=== PATIENT | female | born 1990 | race Caucasian/White ===

== ENCOUNTER 2017-11-01 07:57 | Emergency (ER) | payer BC ==
[~2017-11-01] VITALS: Ht 162.6 cm; Wt 140.9 kg
[~2017-11-01 07:57] MED LIST: CIPR7.5D2 EACH EAR; CYCL-1 PO; DIAZ5TAB PO; HYDR-569 PO; IBUP-1985 PO; MACROBID PO; ONDA4TAB6 PO; ORPH100T2 PO; PRED20TA PO; PREN-84 PO; ZOF4T PO
[2017-11-01 08:03] VITALS: BP 148/81
[2017-11-01] MEDS ORDERED: ketorolac trometh inj. 60 MG/2 ML VIAL IM ONE (08:30)
[2017-11-01] MEDS ORDERED: IBUP-1984 PO (08:31)
== END 2017-11-01 09:00 | disposition home or self-care (01) ==
LOC: ER 07:57
DX: M75.22 Bicipital tendinitis, left shoulder (principal); G89.29 Other chronic pain; Z88.2 Allergy status to sulfonamides; Z88.1 Allergy status to other antibiotic agents; Z79.899 Other long term (current) drug therapy; Z98.890 Other specified postprocedural states
CPT/HCPCS: 96372; 99283; J1885

== ENCOUNTER 2018-02-17 22:42 | Emergency (ER) | payer OTHER, BC ==
[~2018-02-17] VITALS: Ht 162.6 cm; Wt 146.8 kg
[2018-02-17] MEDS ORDERED: ondansetron 4mg rapidly disintigrating tab PO ONE (23:25)
[2018-02-17] MEDS ORDERED: cyclobenzaprine 10mg tablet PO ONE (23:25)
[2018-02-17] MEDS ORDERED: ketorolac tromethamine 15mg/ml inj. IM ONE (23:25)
[2018-02-17] MEDS ORDERED: HYDROcodone/acetaminophen 10/325mg tab PO ONE (23:25)
[2018-02-18] MEDS ORDERED: HYDR-3965 PO
[2018-02-18] MEDS ORDERED: CYCL-1 PO
[2018-02-18] MEDS ORDERED: IBUP-1986 PO
[2018-02-18 00:14] VITALS: BP 122/81
== END 2018-02-18 00:16 | disposition home or self-care (01) ==
LOC: ER 22:42
DX: S16.1XXA Strain of muscle, fascia and tendon at neck level, initial encounter (principal); S20.219A Contusion of unspecified front wall of thorax, initial encounter; G89.29 Other chronic pain; Z98.890 Other specified postprocedural states; Z88.2 Allergy status to sulfonamides; Z88.1 Allergy status to other antibiotic agents; Z88.8 Allergy status to other drugs, medicaments and biological substances; Z79.2 Long term (current) use of antibiotics; Z79.899 Other long term (current) drug therapy; V40.5XXA Car driver injured in collision with pedestrian or animal in traffic accident, initial encounter; Y93.89 Activity, other specified; Y99.8 Other external cause status; Y92.89 Other specified places as the place of occurrence of the external cause
CPT/HCPCS: 71046; 72040; 96372; 99284; J1885; L0172

== ENCOUNTER 2019-04-20 09:42 | Emergency (ER) | payer BC ==
[~2019-04-20] VITALS: Ht 162.6 cm; Wt 133.0 kg
[~2019-04-20 09:42] MED LIST changes: +HYDR-4383 PO; -HYDR-569 PO
[2019-04-20 09:46] VITALS: BP 140/78
[2019-04-20 10:41] LABS: CLARITY,URINE CLEAR (Clear); COLOR,URINE YELLOW (Yellow); GLUCOSE, URINE NEGATIVE (Neg); KETONES,URINE NEGATIVE (Neg); LEUKOCYTE ESTERASE ,URINE TRACE (Neg); NITRITES, URINE NEGATIVE (Neg); OCCULT BLOOD,URINE SMALL (Neg); PH,URINE 5.5 (4.8-8.0); PROTEIN,URINE NEGATIVE (Neg); URINE HCG NEGATIVE (NEG)
[2019-04-20] MEDS ORDERED: ketorolac trometh inj. 60 MG/2 ML VIAL IM ONE (10:45)
[2019-04-20 10:48] LABS: UA COLLECTION TYPE CLN CATCH MIDSTREAM
[2019-04-20 10:51] LABS: BACTERIA,URINE FEW /HPF (Neg); MUCUS STRANDS FEW /LPF (Neg); RBC,URINE 0-2 /HPF (0-2); SQUAMOUS EPITHELIAL CELL,UR MANY /LPF (FEW); WBC,URINE 0-4 /HPF (0-4)
[2019-04-20 11:07] LABS: BASOPHILS % (AUTO) 0.5 % (0-1); EOSINOPHILS # (AUTO) 0.1 X10'3 (0-0.9); EOSINOPHILS % (AUTO) 0.9 % (0-6); HEMATOCRIT 42.1 % (35.0-45.0); HEMOGLOBIN 14.3 g/dl (12.0-16.0); LYMPHOCYTES # (AUTO) 2.5 X10'3 (1.1-4.8); LYMPHOCYTES % (AUTO) 27.6 % (21-51); MEAN CORPUSCULAR HEMOGLOBIN 30.2 PG (27.0-31.0); MEAN CORPUSCULAR HGB CONC 33.9 g/dL (33.0-36.5); MEAN CORPUSCULAR VOLUME 89.3 FL (78-98); MEAN PLATELET VOLUME 9.9 FL (7.4-10.4); MONOCYTES # (AUTO) 0.5 X10'3 (0-0.9); MONOCYTES % (AUTO) 5.7 % (2-12); NEUTROPHILS # (AUTO) 5.9 X10'3 (1.8-7.7); NEUTROPHILS % (AUTO) 65.3 % (42-75); PLATELET COUNT 214 X10'3 (140-440); RED BLOOD COUNT 4.72 X10'6 (4.20-5.60); RED CELL DISTRIBUTION WIDTH 13.5 % (11.5-14.5)
[2019-04-20 11:17] LABS: ALANINE AMINOTRANSFERASE 142 U/L (12-78); ALBUMIN 3.6 G/DL (3.4-5.0); ALBUMIN/GLOBULIN RATIO 0.9 (1.1-1.5); ALKALINE PHOSPHATASE 67 IU/L (46-116); ANION GAP 8 (8-16); ASPARTATE AMINO TRANSFERASE 48 U/L (10-37); BILIRUBIN,TOTAL 0.3 MG/DL (0.1-1.0); BLOOD UREA NITROGEN 10 MG/DL (7-18); BUN/CREATININE RATIO 11.5 (6.6-38.0); CALCIUM 8.8 MG/DL (8.5-10.1); CHLORIDE 107 MMOL/L (99-107); CREATININE 0.87 MG/DL (0.40-0.90); GLUCOSE 121 MG/DL (70-104); LIPASE 138 U/L (73-393); POTASSIUM 3.6 MMOL/L (3.5-5.1); SODIUM 142 MMOL/L (135-145); TOTAL CARBON DIOXIDE 27.4 MMOL/L (24-32); TOTAL PROTEIN 7.7 G/DL (6.4-8.2); eGFR 76 ML/MIN
[2019-04-20] MEDS ORDERED: LIDOcaine Viscous 15ml cup PO ONE (11:30)
[2019-04-20] MEDS ORDERED: famotidine 20mg tablet PO ONE (11:30)
[2019-04-20] MEDS ORDERED: mag hydrox/Alum hydrox/simeth 30ml oral suspension PO ONE (11:30)
[2019-04-20 11:36] LABS: URINE AMPHETAMINE SCREEN NEGATIVE (Neg); URINE BARBITUATE SCREEN NEGATIVE (Neg); URINE BENZODIAZEPINES SCREEN NEGATIVE (Neg); URINE CANNABINOID SCREEN NEGATIVE (Neg); URINE COCAINE SCREEN NEGATIVE (Neg); URINE METHADONE SCREEN NEGATIVE (Neg); URINE OPIATE SCREEN NEGATIVE (Neg); URINE PHENCYCLIDINE SCREEN NEGATIVE (Neg)
== END 2019-04-20 13:05 | disposition home or self-care (01) ==
LOC: ER 09:42
DX: R10.9 Unspecified abdominal pain (principal); R35.0 Frequency of micturition; M54.5 Low back pain; R19.7 Diarrhea, unspecified; G89.29 Other chronic pain; Z98.890 Other specified postprocedural states; Z88.2 Allergy status to sulfonamides; Z88.1 Allergy status to other antibiotic agents; Z79.2 Long term (current) use of antibiotics; Z79.899 Other long term (current) drug therapy
CPT/HCPCS: 36415; 80053; 80305; 81001; 81025; 83690; 85025; 85610; 96372; 99283; J1885

== ENCOUNTER 2019-09-11 04:46 | Emergency (ER) | payer BC ==
[~2019-09-11] VITALS: Ht 162.6 cm; Wt 145.0 kg
[2019-09-11] MEDS ORDERED: ibuprofen tablet 400 MG TABLET PO ONE (05:20)
[2019-09-11] MEDS ORDERED: pseudoephedrine 30mg tablet PO ONE (05:20)
[2019-09-11] MEDS ORDERED: benzonatate 100mg capsule PO ONE (05:20)
[2019-09-11 05:36] VITALS: BP 142/98
== END 2019-09-11 05:30 | disposition home or self-care (01) ==
LOC: ER 04:48
DX: J06.9 Acute upper respiratory infection, unspecified (principal); H92.02 Otalgia, left ear; G89.29 Other chronic pain; F10.99 Alcohol use, unspecified with unspecified alcohol-induced disorder; Z98.890 Other specified postprocedural states; Z88.2 Allergy status to sulfonamides; Z88.1 Allergy status to other antibiotic agents; Z88.8 Allergy status to other drugs, medicaments and biological substances; Z79.899 Other long term (current) drug therapy; Y90.9 Presence of alcohol in blood, level not specified
CPT/HCPCS: 99284

== ENCOUNTER 2020-08-09 07:32 | Emergency (ER) | payer BC ==
[~2020-08-09] VITALS: Ht 162.6 cm; Wt 112.0 kg
[2020-08-09 07:35] VITALS: BP 113/71
[2020-08-09] MEDS ORDERED: AMOX500C2 PO (07:56)
== END 2020-08-09 08:20 | disposition home or self-care (01) ==
LOC: ER 07:33
DX: H66.92 Otitis media, unspecified, left ear (principal); G89.29 Other chronic pain; Z98.891 History of uterine scar from previous surgery; Z98.890 Other specified postprocedural states; Z88.1 Allergy status to other antibiotic agents; Z88.2 Allergy status to sulfonamides; Z88.8 Allergy status to other drugs, medicaments and biological substances; Z79.1 Long term (current) use of non-steroidal anti-inflammatories (NSAID); Z79.899 Other long term (current) drug therapy
CPT/HCPCS: 99283

== ENCOUNTER 2020-11-07 07:05 | Emergency (ER) | payer BC ==
[~2020-11-07] VITALS: Ht 160 cm; Wt 102.3 kg
== END 2020-11-07 07:31 | disposition home or self-care (01) ==
LOC: ER 07:06
DX: B34.9 Viral infection, unspecified (principal); Z20.822 Contact with and (suspected) exposure to COVID-19; Z86.19 Personal history of other infectious and parasitic diseases; G89.29 Other chronic pain; Z72.89 Other problems related to lifestyle; Z98.891 History of uterine scar from previous surgery; Z98.890 Other specified postprocedural states; Z88.1 Allergy status to other antibiotic agents; Z88.2 Allergy status to sulfonamides; Z88.8 Allergy status to other drugs, medicaments and biological substances; Z79.2 Long term (current) use of antibiotics; Z79.899 Other long term (current) drug therapy
CPT/HCPCS: 36415; 87635; 99283

== ENCOUNTER 2021-08-06 10:07 | Emergency (ER) | payer BC, MEDICAID ==
[~2021-08-06] VITALS: Ht 162.6 cm; Wt 100.0 kg
[2021-08-06 10:11] VITALS: BP 121/71
[2021-08-06] MEDS ORDERED: ibuprofen tablet 400 MG TABLET PO ONE (11:25)
[2021-08-06] MEDS ORDERED: HYDROcodone/acetaminophen 10/325mg tab PO ONE (11:25)
[2021-08-06] MEDS ORDERED: HYDR-3965 PO (12:36)
[2021-08-06] MEDS ORDERED: IBUP-1986 PO (12:36)
== END 2021-08-06 12:37 | disposition home or self-care (01) ==
LOC: ER 10:08
DX: S93.401A Sprain of unspecified ligament of right ankle, initial encounter (principal); M25.571 Pain in right ankle and joints of right foot; G89.29 Other chronic pain; Z87.440 Personal history of urinary (tract) infections; Z98.890 Other specified postprocedural states; Z72.89 Other problems related to lifestyle; Z88.1 Allergy status to other antibiotic agents; Z88.8 Allergy status to other drugs, medicaments and biological substances; Z79.2 Long term (current) use of antibiotics; Z79.899 Other long term (current) drug therapy; X58.XXXA Exposure to other specified factors, initial encounter; Y93.89 Activity, other specified; Y92.89 Other specified places as the place of occurrence of the external cause; Y99.8 Other external cause status
CPT/HCPCS: 73610; 73630; 99284

== ENCOUNTER 2023-11-09 11:43 | Emergency (ER) | payer BC, MEDICAID ==
[~2023-11-09] VITALS: Ht 162.6 cm; Wt 104.2 kg
[~2023-11-09 11:43] MED LIST changes: +IBUP-1986 PO; -ORPH100T2 PO; +ORPH100T4 PO
[2023-11-09 11:52] VITALS: BP 137/89; PULSE 101; TEMP 98.4
[2023-11-09] MEDS ORDERED: ALBU8HFA INH (12:41)
[2023-11-09] MEDS ORDERED: IBUP-1985 PO (12:41)
[2023-11-09] MEDS ORDERED: PSEU120T56 PO (12:41)
[2023-11-09] MEDS ORDERED: FLUT16SP2 BOTHNARES (12:41)
[2023-11-09] MEDS ORDERED: NIRM1TAB9 PO (12:41)
[2023-11-09 12:50] VITALS: RESP 16; O2SAT 98
== END 2023-11-09 12:51 | disposition home or self-care (01) ==
LOC: ER 11:44
DX: U07.1 COVID-19 (principal); R42 Dizziness and giddiness; Z88.2 Allergy status to sulfonamides; Z79.2 Long term (current) use of antibiotics; Z79.1 Long term (current) use of non-steroidal anti-inflammatories (NSAID); Z79.899 Other long term (current) drug therapy; Z98.890 Other specified postprocedural states
CPT/HCPCS: 71045; 93005; 99283

== ENCOUNTER 2025-03-29 09:27 | Emergency (ER) | payer BC, MEDICAID ==
[~2025-03-29] VITALS: Ht 162.6 cm; Wt 79.1 kg
[~2025-03-29 09:27] MED LIST changes: +FLUT16SP2 BOTHNARES; +NIRM1TAB9 PO; +PSEU120T56 PO
--- NOTE | 2025-03-29 10:05 | RADIOLOGY REPORT ---
EXAM: XR Chest, 1 View CLINICAL INDICATION: CP TECHNIQUE: Frontal view of the chest. COMPARISON: No relevant prior studies available. FINDINGS: LUNGS AND PLEURAL SPACES: Unremarkable. No consolidation. No pneumothorax. HEART: Unremarkable. No cardiomegaly. MEDIASTINUM: Unremarkable. Normal mediastinal contour. BONES/JOINTS: Unremarkable. No acute fracture. OTHER FINDINGS: Comparison DI CHEST,SINGLE VIEW on DOS: 11/09/23. IMPRESSION: No acute cardiopulmonary process. HS:Y
[2025-03-29 10:30] LABS: MEAN PLATELET VOLUME 11.4 FL (7.4-10.4); RED CELL DISTRIBUTION WIDTH 13.0 % (11.5-14.5)
--- NOTE | 2025-03-29 10:43 | Physician Documentation ---
History of Present Illness ~ Chief Complaint: Chest Pain Stated Complaint: ABD PAIN DIZZINESS Time Seen by MD: 10:18 Primary Medical Doctor: VIDAL SUNSHINE Source: patient Mode of Arrival: Ambulatory Exam Limitations: no limitations HPI Chief Complaint: Multiple complaints-chest pain, abdominal pain, nausea, dizz iness Caveat: None Independent Historians: None History of Present Illness: Patient is a 34-year-old healthy woman who comes in complaining of nausea that began last Monday. Patient also started having chest pain that began three days ago. Patient while at work this morning the nausea and dizziness got worse as did the chest pain. Patient describes the dizziness as lightheadedness and spinning and that her head feels heavy. Describes the chest pain has sharp when it is severe and then dull. The pain does not completely go away for the last three days. No shortness a breath. No fever, no cough, no vomiting, no diarrhea Review of systems: All systems were reviewed and are negative except for what is indicated in the history of present illness. Past Medical History: None Past Surgical History: Cholecystectomy Social History: No tobacco use, no alcohol use, no drug use Medications: Reviewed as documented Nursing Notes Allergies: Reviewed as documented in Nursing Notes Medication Reconciliation Allergies: Coded Allergies: sulfamethoxazole (Verified Allergy, Severe, ANAP, 03/29/25) trimethoprim (Verified Allergy, Severe, ANAP, 03/29/25) ciprofloxacin (Verified Allergy, Intermediate, 03/29/25) ciprofloxacin HCl (Verified Allergy, Intermediate, 03/29/25) neomycin (Verified Allergy, Unknown, 03/29/25) shellfish derived (Unverified Allergy, Unknown, 03/29/25) Scheduled Ciprofloxacin HCl/Dexameth (Ciprodex Otic Suspension), 4 DROP EACH EAR BID Diazepam (Valium), 1 TABLET PO HS Fluticasone Propionate (Flonase), 2 SPRAYS BOTHNARES DAILY Ibuprofen (Ibuprofen), 1 TAB PO Q8H Ibuprofen (Ibuprofen), 1 TAB PO Q6H Nirmatrelvir/Ritonavir (Paxlovid 300-100 mg Dose Pack), 1 TAB PO BID Nitrofurantoin/Nitrofuran Mac* (Macrobid*), 100 MG PO BID Ondansetron ODT* (Zofran ODT*), 4 MG PO Q6H Prednisone* (Prednisone*), 2 TAB PO DAILY Vits W-Ca,Fe,Fa(<1MG) ( Vitamins), 1 EACH PO DAILY, (Reported) Pseudoephedrine HCl (Sudafed 12 Hour), 1 TAB PO Q12H Scheduled PRN Cyclobenzaprine* (Cyclobenzaprine*), 1 TABLET PO Q8H PRN for muscle spasms Cyclobenzaprine* (Cyclobenzaprine*), 1 TABLET PO Q8H PRN for muscle spasms Hydrocodone/Acetaminophen ([place] 5-325 Tablet), 1 TABLET PO TID PRN for pain Ibuprofen (Ibuprofen), 1 TAB PO Q6H PRN for pain Ondansetron Hcl (Zofran), 1 TABLET PO Q6H PRN for nausea/vomiting Orphenadrine Citrate (Norflex), 1 TAB PO Q12H PRN PRN for 20 Past Medical History Past Medical History: UTI, Chronic Back Pain Past Surgical History: Other Past Surgical History: bilateral myringotomy Alcohol Use: Occasionally Drug Use: none Lives with: Family Lives In: Home Occupation: employed Review of Systems All Other Systems at this time: Reviewed and Negative ROS Patient denies any other acute symptoms other than above. All other systems are negative Physical Exam Vital Signs: RN Vital Signs have been reviewed: Yes, Temperature: 98.6, Source: Oral, Heart Rate: 79, Respiratory Rate: 14, BP: 112/80, Pulse Oximetry: 100, Weight: 79.090 Oxygen Flow Rate: 0 Pulse Oximetry Reflects: adequate oxygenation Physical Exam General Appearance: MILD DISTRESS HEENT: Normal OP, moist oral mucosa, PERRL, EOMI Neck: supple, normal ROM, trachea midline Pulmonary: No respiratory distress, CTA, BS equal Cardiac: RRR, no murmur, rub or gallop, GI: nondistended, soft, DIFFUSE TENDERNESS BUT IS MOST TENDER IN THE RIGHT UPPER QUADRANT, normal bowel sounds, no guarding, no rebound : BILATERAL CVA TENDERNESS RIGHT GREATER THAN LEFT. Extremities: normal ROM, no swelling, non-tender Skin: intact, dry, warm, no rashes Neuro: AAOx3, speech is clear, no focal motor weakness Psych: normal affect, good eye contact, no apparent hallucination, normal speech Progress Results/Orders Results/Orders Orders - BUSHRA STONER MD Chest,Single View (03/29/25 09:33) Monitor (03/29/25 09:33) Saline Lock (03/29/25 09:33) Oxygen (03/29/25 09:33) Electrocardiogram (03/29/25 09:33) Hs Troponin I W Calculations (03/29/25 12:33) Completed Orders - BUSHRA STONER MD Chest,Single View (03/29/25 09:33) Cbc/Diff (03/29/25 09:33) BMP (03/29/25 09:33) PBNP (03/29/25 09:33) Hs Troponin I W Calculations (03/29/25 09:33) Hs Troponin I W Calculations (03/29/25 11:33) Vital Signs 03/29/25 03/29/25 03/29/25 03/29/25 09:30 10:26 10:31 11:27 Temp 98.6 Pulse 85 79 74 Resp 18 14 12 B/P (MAP) 118/86 112/80 (91) 116/70 (85) Pulse Ox 100 100 100 O2 Flow Rate 0 0 03/29/25 12:30 Pulse 73 Resp 12 B/P (MAP) 119/76 (90) Pulse Ox 100 O2 Flow Rate 0 Laboratory Tests Test 03/29/25 09:46 03/29/25 11:51 03/29/25 13:02 White Blood Count 6.6 Red Blood Count 4.76 Hemoglobin 14.7 Hematocrit 43.3 Mean Corpuscular Volume 91.1 Mean Corpuscular Hemoglobin 30.8 Mean Corpuscular Hemoglobin Concent 33.8 Red Cell Distribution Width 13.0 Platelet Count 154 Mean Platelet Volume 11.4 H Neutrophils (%) (Auto) 67.2 Lymphocytes (%) (Auto) 25.0 Monocytes (%) (Auto) 6.6 Eosinophils (%) (Auto) 0.7 Basophils (%) (Auto) 0.5 Neutrophils # (Auto) 4.5 Lymphocytes # (Auto) 1.7 Monocytes # (Auto) 0.4 Eosinophils # (Auto) 0.0 Basophils # (Auto) 0.0 CBC Comment Sodium Level 138 Potassium Level 3.7 Chloride Level 103 Carbon Dioxide Level 27.2 Anion Gap 8 Blood Urea Nitrogen 11 Creatinine 0.70 Estimated GFR/1.73 m2 > 90 BUN/Creatinine Ratio 15.7 Glucose Level 93 Calcium Level 8.6 Troponin I High Sensitivity 4 4 Pro-B-Type Natriuretic Peptide 45 Albumin 4.0 Chemistry Comments Troponin I High Sens Percent Delta 0 Troponin I Hi Sens Absolute Change 0 Medical Decision Making Findings Differential diagnosis includes but is not limited to: EKG independent interpretation: Chest x-ray, single view, indication: Independent interpretation: Laboratory data independent interpretation: CBC: Normal CMP: Normal Troponin: 4, repeat troponin 4 Emergency department course/medical decision-making: Consultation/communications: Departure Time of Disposition: 13:14 Disposition: HOME / SELF CARE / HOMELESS Impression: Primary Impression: Chest pain of unknown etiology Additional Impression: Abdominal pain of unknown cause Condition: Improved Discharge Instructions: Abdominal Pain, Adult, [id number], Nonspecific Chest Pain, Adult Additional Instructions: FOLLOW UP WITH YOUR DOCTOR MONDAY IF YOUR SYMPTOMS HAVE NOT RESOLVED. THIS CERTAINLY MAY BE A SIDE EFFECT OF THE MEDICATION ZEPBOUND. RETURN TO THE ER IF YOUR SYMPTOMS WORSEN OR IF YOU DEVELOP A FEVER. Prescriptions ONDANSETRON ODT 4mg tablet (ONDANSETRON ODT) 4 Mg Tab.rapdis 1 TAB PO Q6H PRN PRN for nausea/vomiting for 5 Days, #20 TAB 0 Refills Prov: BUSHRA STONER MD 03/29/25 Education Educated: Patient Educated regarding: diagnosis, treatment, need for follow up Signature Scribe Signature: NO SCRIBE Attestation: NO SCRIBE BUSHRA STONER MD Mar 29, 2025 10:43
[2025-03-29 10:48] LABS: CREATININE 0.70 MG/DL (0.40-0.90); PRO BRAIN NATRIURETIC PEPTIDE 45 PG/ML (0-125); TOTAL CARBON DIOXIDE 27.2 MMOL/L (24-32); eCRCL 96 ML/MIN; eGFR > 90 ML/MIN
[2025-03-29] MEDS ORDERED: ONDA-243 PO (13:16)
[2025-03-29 14:43] VITALS: BP 116/77; PULSE 83; RESP 16; TEMP 98.6; O2SAT 100
--- NOTE | 2025-03-29 18:30 | ELECTROCARDIOGRAPH REPORT ---
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 Robert Green Measurements Intervals [place] Rate: 80 P: 73 [place]: 115 QRS: -4 QRSD: 95 T: 34 QT: 493 QTc: 569 Interpretive Statements Sinus rhythm Borderline short [place] interval Borderline T wave abnormalities Prolonged QT interval Electronically Signed On 03-29-2025 18:54:[address] Robert Green Please click the below link to view image of tracing.
== END 2025-03-29 14:45 | disposition home or self-care (01) ==
LOC: ER 09:28
DX: R07.89 Other chest pain (principal); R10.9 Unspecified abdominal pain; Z90.49 Acquired absence of other specified parts of digestive tract; Z88.2 Allergy status to sulfonamides; Z88.8 Allergy status to other drugs, medicaments and biological substances; Z88.1 Allergy status to other antibiotic agents; Z79.899 Other long term (current) drug therapy; Z72.89 Other problems related to lifestyle
CPT/HCPCS: 36415; 71045; 80048; 83880; 84484; 85025; 93005; 99285

== ENCOUNTER 2025-05-28 20:30 | Emergency (ER) | payer BC ==
[~2025-05-28] VITALS: Ht 162.6 cm; Wt 80.0 kg
[~2025-05-28 20:30] MED LIST changes: -IBUP-1985 PO; +IBUP600T52 PO; +NIRM1TAB13 PO; -NIRM1TAB9 PO; +ONDA-243 PO
[2025-05-28 20:48] VITALS: BP 114/84; PULSE 78; RESP 18; O2SAT 99
[2025-05-28 21:12] LABS: MEAN PLATELET VOLUME 10.5 FL (7.4-10.4); RED CELL DISTRIBUTION WIDTH 12.8 % (11.5-14.5)
[2025-05-28 21:20] LABS: CREATININE 0.89 MG/DL (0.40-0.90); TOTAL CARBON DIOXIDE 26.0 MMOL/L (24-32); eCRCL 75 ML/MIN; eGFR 72 ML/MIN
[2025-05-28 21:24] LABS: APTT 25 SECONDS (22-32); INR 1.1 INR
--- NOTE | 2025-05-28 21:39 | ELECTROCARDIOGRAPH REPORT ---
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
[2025-05-28 21:40] LABS: LEUKOCYTE ESTERASE ,URINE NEGATIVE (Neg); NITRITES, URINE NEGATIVE (Neg); OCCULT BLOOD,URINE TRACE-INTACT (Neg); URINE HCG NEGATIVE (NEG)
[2025-05-28 21:41] LABS: UA COLLECTION TYPE NON-SPECIFIED
[2025-05-28 21:52] LABS: MUCUS STRANDS MANY /LPF (Neg); SQUAMOUS EPITHELIAL CELL,UR MODERATE /LPF (FEW)
--- NOTE | 2025-05-28 23:04 | Physician Documentation ---
History of Present Illness ~ Chief Complaint: Syncope Stated Complaint: LOW BP Time Seen by MD: 23:02 Primary Medical Doctor: VIDAL SUNSHINE Mode of Arrival: POV HPI Patient presents to the emergency room after syncopal episode. Patient states over the past few days she has been feeling lightheaded when she stands. She states her vision dark ins and she asked to sit down to avoid passing out. Today she stood up from her porch and walk to her room and made it there before passing out. She had denies any head strike. Unknown down time. No bladder incontinence. Denies palpitations or chest pain. She has had 180 lb weight loss over the past several years secondary to gastric bypass. She had denies one-sided leg pain. No family history of sudden cardiac . Medication Reconciliation Allergies: Coded Allergies: sulfamethoxazole (Verified Allergy, Severe, ANAP, 03/29/25) trimethoprim (Verified Allergy, Severe, ANAP, 03/29/25) ciprofloxacin (Verified Allergy, Intermediate, 03/29/25) ciprofloxacin HCl (Verified Allergy, Intermediate, 03/29/25) neomycin (Verified Allergy, Unknown, 03/29/25) shellfish derived (Unverified Allergy, Unknown, 03/29/25) Scheduled Ciprofloxacin HCl/Dexameth (Ciprodex Otic Suspension), 4 DROP EACH EAR BID Diazepam (Valium), 1 TABLET PO HS Fluticasone Propionate (Flonase), 2 SPRAYS BOTHNARES DAILY Ibuprofen (Ibuprofen), 1 TAB PO Q8H Ibuprofen (Ibuprofen), 1 TAB PO Q6H Nirmatrelvir/Ritonavir (Paxlovid 300-100 mg Dose Pack), 1 TAB PO BID Nitrofurantoin/Nitrofuran Mac* (Macrobid*), 100 MG PO BID Ondansetron ODT* (Zofran ODT*), 4 MG PO Q6H Prednisone* (Prednisone*), 2 TAB PO DAILY Vits W-Ca,Fe,Fa(<1MG) ( Vitamins), 1 EACH PO DAILY, (Reported) Pseudoephedrine HCl (Sudafed 12 Hour), 1 TAB PO Q12H Scheduled PRN Cyclobenzaprine* (Cyclobenzaprine*), 1 TABLET PO Q8H PRN for muscle spasms Cyclobenzaprine* (Cyclobenzaprine*), 1 TABLET PO Q8H PRN for muscle spasms Hydrocodone/Acetaminophen ([place] 5-325 Tablet), 1 TABLET PO TID PRN for pain Ibuprofen (Ibuprofen), 1 TAB PO Q6H PRN for pain ONDANSETRON ODT 4mg tablet (Ondansetron Odt), 1 TAB PO Q6H PRN PRN for nausea/vomiting Ondansetron Hcl (Zofran), 1 TABLET PO Q6H PRN for nausea/vomiting Orphenadrine Citrate (Norflex), 1 TAB PO Q12H PRN PRN for 20 Past Medical History Past Medical History: UTI, Chronic Back Pain Past Surgical History: Other Past Surgical History: bilateral myringotomy Alcohol Use: Occasionally Drug Use: none Lives with: Family Lives In: Home Occupation: employed Review of Systems ROS All review of systems negative except as per HPI Physical Exam Vital Signs: Temperature: 97.2, Source: Temporal, Heart Rate: 78, Respiratory Rate: 18, BP: 114/84, Pulse Oximetry: 99, Weight: 80.000 Physical Exam General: Patient is awake, alert, oriented x4 in no acute distress Head: Normocephalic and atraumatic. Eyes: Conjunctival normal. EOMI. PERRL. ENT: Mucous membranes moist. Neck: Supple, trachea is midline. Chest: Clear to auscultation bilaterally without rales, rhonchi, or wheezes. There is no accessory muscle use or retractions. Cardiac: RRR without murmurs, gallops, or rubs. Extremities: Normal strength. Normal range of motion. No deformities or edema. No calf tenderness to palpation Progress Results/Orders Results/Orders Completed Orders - FARHAT COKER MD Cbc/Diff (05/28/25 20:51) Electrocardiogram (05/28/25 20:51) BMP (05/28/25 20:51) PTT (05/28/25 20:51) Pt Inr (05/28/25 20:51) Hs Troponin I W Calculations (05/28/25 20:51) Hcg, Ur Ql (05/28/25 20:51) Ua W/Microscopic, Cult If Ind (05/28/25 21:14) Vital Signs 05/28/25 20:48 Temp 97.2 Pulse 78 Resp 18 B/P (MAP) 114/84 Pulse Ox 99 Laboratory Tests Test 05/28/25 21:00 05/28/25 21:14 White Blood Count 8.0 Red Blood Count 4.58 Hemoglobin 14.3 Hematocrit 42.2 Mean Corpuscular Volume 92.2 Mean Corpuscular Hemoglobin 31.3 H Mean Corpuscular Hemoglobin Concent 33.9 Red Cell Distribution Width 12.8 Platelet Count 183 Mean Platelet Volume 10.5 H Neutrophils (%) (Auto) 67.0 Lymphocytes (%) (Auto) 24.9 Monocytes (%) (Auto) 6.8 Eosinophils (%) (Auto) 0.9 Basophils (%) (Auto) 0.4 Neutrophils # (Auto) 5.4 Lymphocytes # (Auto) 2.0 Monocytes # (Auto) 0.5 Eosinophils # (Auto) 0.1 Basophils # (Auto) 0.0 CBC Comment Prothrombin Time 10.8 INR International Normalized Ratio 1.1 Activated Partial Thromboplast Time 25 Coagulation Comments Sodium Level 143 Potassium Level 3.5 Chloride Level 107 Carbon Dioxide Level 26.0 Anion Gap 10 Blood Urea Nitrogen 16 Creatinine 0.89 Estimated GFR/1.73 m2 72 BUN/Creatinine Ratio 18.0 Glucose Level 81 Calcium Level 8.7 Troponin I High Sensitivity 5 Albumin 4.0 Chemistry Comments Urine Specimen Description Non-specified Urine Color Yellow Urine Clarity Clear Urine pH 6.0 Urine Specific [place] >=1.030 Urine Protein Trace Urine Glucose (UA) Negative Urine Ketones >=80 Urine Occult Blood Trace-intact Urine Nitrite Negative Urine Bilirubin Small Urine Urobilinogen 0.2 Urine Leukocyte Esterase Negative Urine RBC 0-2 Urine WBC 0-4 Urine Squamous Epithelial Cells Moderate Urine Bacteria 2+ Urine Mucus Many Urine Culture Indicated Not ind Volume Urine Centrifuged 10 ml Urine HCG, Qualitative Negative Urine Comment EKG/XRAY/CT/US/VASC/MRI EKG : Additional Comment EKG interpreted by myself shows time of 09/23/2036, rate 69, sinus rhythm, normal axis, no ST changes, no prolonged QT, no hypertrophic cardiomyopathy Medical Decision Making Findings Patient presents to the emergency room for evaluation of syncopal episodes. Differentials include but are not limited to vasovagal, POTS, dehydration, cardiac arrhythmia, carotid stenosis therefore emergent labs ordered. Patient has low cardiovascular risk with no blood pressure cholesterol or diabetes and she does not smoke. No family history of sudden cardiac . Given patient's ability to provoke her symptoms with standing I believe she is likely suffering from vasovagal or possibly POTS. She does further endorse that she took her blood pressure before standing and after standing and found that her pressures dropped significantly. She has been instructed to double her efforts in drinking water and add some additional salt to her food and to follow up with her doctor. He had not believe patient is suffering from cardiac arrhythmia, stroke and patient is too young for carotid stenosis. Departure Disposition: HOME / SELF CARE / HOMELESS Impression: Primary Impression: Vasovagal syncope Condition: Stable Discharge Instructions: Syncope, Adult Additional Instructions: Double your hydration efforts. Add some salt to her food and follow up with your doctor. Referrals: NO PRIMARY CARE PROVIDER (PCP) Signature Scribe Signature: No scribe Attestation: The note accurately reflects work and decisions made by me.Farhat Cokre MD 05/28/25 23:21 FARHAT COKER MD May 28, 2025 23:04
[2025-05-28 23:25] VITALS: TEMP 97.2
== END 2025-05-28 23:27 | disposition home or self-care (01) ==
LOC: ER 20:31
DX: R55 Syncope and collapse (principal); G89.29 Other chronic pain; Z87.440 Personal history of urinary (tract) infections; Z88.2 Allergy status to sulfonamides; Z88.1 Allergy status to other antibiotic agents; Z91.013 Allergy to seafood; Z79.899 Other long term (current) drug therapy; Z72.89 Other problems related to lifestyle
CPT/HCPCS: 36415; 80048; 81001; 81025; 84484; 85025; 85610; 85730; 93005; 99284

== ENCOUNTER 2025-08-24 17:03 | Inpatient (IN) | payer BC ==
[~2025-08-24] VITALS: Ht 162.6 cm; Wt 75.0 kg
--- NOTE | 2025-08-24 17:59 | ELECTROCARDIOGRAPH REPORT ---
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 Robert Green Measurements Intervals [place] Rate: 83 P: 120 [place]: 118 QRS: 213 QRSD: 106 T: 148 QT: 382 QTc: 449 Interpretive Statements Right and left arm electrode reversal, interpretation assumes no reversal Sinus arrhythmia Borderline short [place] interval Right axis deviation Nonspecific T abnormalities, lateral leads Electronically Signed On 08-27-2025 21:15:[address] Robert Green Please click the below link to view image of tracing.
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
--- NOTE | 2025-08-24 18:25 | RADIOLOGY REPORT ---
EXAM: DI CHEST,SINGLE VIEW CLINICAL HISTORY: SOB TECHNIQUE: Single AP view of the chest WID: COMPARISON: DI CHEST,SINGLE VIEW on DOS: 08/21/25 FINDINGS: Lines and tubes: None Chest: The heart size and pulmonary vasculature is within normal limits. No pleural effusion, pneumothorax, or consolidation. The osseous structures are grossly intact. IMPRESSION: 1. No acute cardiopulmonary abnormality.
[2025-08-24 18:38] LABS: MEAN PLATELET VOLUME 10.9 FL (7.4-10.4); RED CELL DISTRIBUTION WIDTH 12.4 % (11.5-14.5)
[2025-08-24 18:49] LABS: CREATININE 0.85 MG/DL (0.40-0.90); TOTAL CARBON DIOXIDE 23.8 MMOL/L (24-32); eCRCL 78 ML/MIN; eGFR 75 ML/MIN
[2025-08-24] MEDS: ondansetron 4mg rapidly disintigrating tab PO ONE (19:37)
[2025-08-24] MEDS: potassium Cl 20 mEq SR tablet PO STA (19:37)
[2025-08-24] MEDS ORDERED: magnesium hydroxide 30ml (MOM) UD suspension PO PRN (21:15)
[2025-08-24] MEDS ORDERED: ondansetron/PF 4mg/2ml inj IV PRN (21:15)
[2025-08-24] MEDS ORDERED: mag hydrox/Alum hydrox/simeth 30ml oral suspension PO PRN (21:15)
[2025-08-24] MEDS ORDERED: potassium Cl 40MEQ/1/2NS 520ml 520 ML IV PRN (21:15)
[2025-08-24] MEDS ORDERED: magnesium Cl slow-release 64mg tablet PO PRN (21:15)
[2025-08-24] MEDS ORDERED: ondansetron 4mg rapidly disintigrating tab PO PRN (21:15)
[2025-08-24] MEDS ORDERED: magnesium sulf-water 2g/50mL 50 ML IV PRN (21:15)
[2025-08-24] MEDS ORDERED: magnesium sulf-water 4G/100mL 100 ML IV PRN (21:15)
[2025-08-24] MEDS ORDERED: potassium Cl 20 mEq SR tablet PO PRN (21:15)
[2025-08-24] MEDS ORDERED: NO HOME MEDS (22:21)
--- NOTE | 2025-08-24 22:21 | ELECTROCARDIOGRAPH REPORT ---
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 Robert Green Measurements Intervals [place] Rate: 74 P: 58 NE: 120 QRS: 12 QRSD: 102 T: 54 QT: 417 QTc: 463 Interpretive Statements Sinus rhythm Electronically Signed On 08-27-2025 21:15:[address] Robert Green Please click the below link to view image of tracing.
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
[2025-08-24] MEDS ORDERED: aminophylline 250mg/10ml inj. IV PRN (23:20)
[2025-08-24] MEDS ORDERED: metoprolol tartrate 1mg/ml inj IV PRN (23:20)
[2025-08-24] MEDS ORDERED: albuterol 2.5 MG/3 ML nebule NEB PRN (23:25)
[2025-08-24] MEDS: PERFLUTREN PROTEIN-A MICROSPHR (Optison) 0.22 MG/ML 3ML VIAL IV ONE (23:30)
[2025-08-24] MEDS: HYDROcodone/acetaminophen 5mg/325mg tablet PO PRN (23:48)
[2025-08-25] VITALS (13 sets, daily range): BP systolic 97–122; BP diastolic 61–84; PULSE 69–120; RESP 15–20; TEMP 97.5–98.1; O2SAT 96–100
[2025-08-25 00:16] LABS: INFLUENZA TYPE A ANTIGEN RAPID NEGATIVE (Negative); INFLUENZA TYPE B ANTIGEN RAPID NEGATIVE (Negative)
[2025-08-25 00:28] LABS: CHOL/HDL RATIO 2.9 (0.00-4.99); LDL CHOLESTEROL 75 MG/DL (50-100)
[2025-08-25 00:31] LABS: INR 1.1 INR
[2025-08-25 01:32] LABS: MEAN PLATELET VOLUME 10.5 FL (7.4-10.4); RED CELL DISTRIBUTION WIDTH 12.4 % (11.5-14.5)
[2025-08-25] MEDS: morphine 4 MG/ML inj SYRINge IV ONE (01:41)
[2025-08-25 01:49] LABS: CREATININE 0.73 MG/DL (0.40-0.90); TOTAL CARBON DIOXIDE 25.6 MMOL/L (24-32); eCRCL 91 ML/MIN; eGFR 90 ML/MIN
[2025-08-25] MEDS: enoxaparin 30mg/0.3ml syringe SUBCUT SCH (03:22)
[2025-08-25] MEDS: enoxaparin 40mg/0.4ml syringe SQ SCH (03:23)
[2025-08-25] MEDS: potassium Cl 20 mEq SR tablet PO PRN (04:00)
[2025-08-25] MEDS: K and/or MAG REPLACEMENT MC SCH (08:00)
[2025-08-25] MEDS: metoprolol succinate 25mg (24-HOUR) SR. Tablet PO ONE (08:13)
[2025-08-25] MEDS: docusate sod 100mg capsule PO SCH (08:13)
[2025-08-25] MEDS: regadenoson 0.4mg/5ml syringe IV PRN (10:13)
[2025-08-25 11:46] LABS: LEUKOCYTE ESTERASE ,URINE NEGATIVE (Neg); NITRITES, URINE NEGATIVE (Neg); OCCULT BLOOD,URINE TRACE-INTACT (Neg)
[2025-08-25 11:48] LABS: UA COLLECTION TYPE VOIDED
--- NOTE | 2025-08-25 11:48 | RADIOLOGY REPORT ---
Reason for study/Clinical History: ACS Comparison Study: None Myocardial Perfusion Study with SPECT TECHNIQUE: The patient received an intravenous injection of 7 mCi of technetium-99m Sestamibi while at rest. After a short delay, SPECT tomographic images of the heart were obtained. The patient then went to the stress lab where they received an intravenous Lexiscan utilizing standard protocol. 28.4 mCi of technetium-99m Sestamibi was injected intravenously immediately after the start of the infusion. Gated SPECT tomographic images of the heart were acquired and processed. FINDINGS: Rotating planar images show no significant attenuation artifact. The left ventricular size is within normal limits. Stress tomographic images demonstrate normal perfusion. Resting tomographic images demonstrate a similar pattern. Gated portion of the study shows normal wall motion and myocardial thickening. The left ventricular ejection fraction is 67 %. (normal greater than 50%) IMPRESSION: Normal left ventricular size, wall motion, and function, without evidence of infarction or of myocardium at ischemic risk.The left ventricular ejection fraction is 67 %.
[2025-08-25 11:55] LABS: SQUAMOUS EPITHELIAL CELL,UR FEW /LPF (FEW)
[2025-08-25 11:56] LABS: MUCUS STRANDS FEW /LPF (Neg)
[2025-08-25] MEDS ORDERED: ipratropium/albuterol 3ml nebule NEB PRN (12:30)
[2025-08-25] MEDS ORDERED: morphine 4 MG/ML inj SYRINge IV PRN (12:30)
[2025-08-25 13:03] LABS: CREATININE 0.65 MG/DL (0.40-0.90); TOTAL CARBON DIOXIDE 24.3 MMOL/L (24-32); eCRCL 102 ML/MIN; eGFR > 90 ML/MIN
[2025-08-25] MEDS: ipratropium/albuterol 3ml nebule NEB SCH (15:27)
[2025-08-25] MEDS ORDERED: ASPI81TA53 PO (16:15)
[2025-08-25] MEDS ORDERED: ALBU18HF2 IH (16:15)
[2025-08-25] MEDS ORDERED: ATOR20TA66 PO (16:15)
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
--- NOTE | 2025-08-26 06:28 | CARDIOLOGY REPORT ---
APPROVED REPORT EXAM: Comprehensive 2D, Doppler, and color-flow Echocardiogram. Patient Location: [address] Blood Pressure: 111/67 mmHg Heart Rate: 71 bpm Rhythm: SINUS Indications CHEST PAIN HS TROPONIN 77, 111, 119, 63, 56 [id number] Consultant: none Previous echo: none 2D Dimensions RVDd 3.0 cm LA Diam 4.6 cm RA Major 3.4 cm RA Minor 3.2 cm LVOT Diameter 1.94 (1.8-2.4cm) Ao Asc Diam. 2.90 cm IVC 22.55 mm CO 4.4 L/min M-Mode Dimensions Left Atrium(MM) 3.49 (2.5-4.0cm) IVSd 0.77 (0.7-1.1cm) LVDd 4.93 (4.0-5.6cm) Aortic Root 3.04 (2.2-3.7cm) PWd 1.06 (0.7-1.1cm) Aortic Cusp Exc 2.02 (1.5-2.0cm) IVSs 1.22 cm MV EPSS 0.7 (<0.5cm) LVDs 3.46 (2.0-3.8cm) FS (%) 30 % PWs 1.44 cm ESV(Teich) 49.5 ml LVEF(%) 57 (>50%) Biplane 2D LA Volumes LA ESV Index 26.16 mL/m2 Aortic Valve AoV Peak Manfred. 129.9 cm/s AoV VTI 24.0 cm AO Peak GR. 6.8 mmHg AO Mean GR. 4 mmHg LVOT VTI 18.26 cm LVOT Peak Manfred. 104.1 cm/s YISEL(VTI)/BSA 2.25 cm2/m2 YISEL (VTI) 2.25 cm2 AV DI 0.76 % Mitral Valve MV E Velocity 92.4 cm/s MV Peak Gr. 4 mmHg MV DECEL TIME 236 ms MV A Velocity 46.2 cm/s MV PHT 40 ms E/A Ratio 2.0 MVA (PHT) 5.50 cm2 MV VMax 105.2 cm/s TDI Medial E' P. V 16.61 cm/s E/Medial E' 5.6 Tricuspid Valve TR P. Velocity 214 cm/s RAP ESTIMATE 10 mmHg TR Peak Gr. 18 mmHg RVSP 28 mmHg Pulmonary Vein S1 Velocity 62.9 cm/s D2 Velocity 53.6 cm/s PVa Velocity 33.7 cm/s PVa Duration 116 msec LEFT VENTRICLE Normal LV size and wall thickness. Overall systolic function is normal. LVEF is 55-60%. RIGHT VENTRICLE RV is normal size and function. ATRIA LA size is normal. RA size is normal. AORTIC VALVE Trileaflet AV appears mildly sclerotic without stenosis or insufficiency by color and spectral flow Doppler. MITRAL VALVE Mild MV annular calcification without stenosis. Trace regurgitation by color and spectral flow Doppler. TRICUSPID VALVE TV appears structurally normal with trace regurgitation by color and spectral flow Doppler. PULMONIC VALVE Normal PV without stenosis, physiologic insufficiency by color and spectral flow Doppler. GREAT VESSELS Aortic root is normal in size. Ascending aorta is normal in size. IVC is dilated and collapses greater than 50% with inspiration. PERICARDIUM Normal pericardium. No effusion. Other Information Study Quality: Adequate Conclusion Normal LV size and wall thickness. Overall systolic function is normal. LVEF is 55-60%. RV is normal size and function. LA size is normal. RA size is normal. Trileaflet AV appears mildly sclerotic without stenosis or insufficiency by color and spectral flow Doppler. Mild MV annular calcification without stenosis. Trace regurgitation by color and spectral flow Doppler. TV appears structurally normal with trace regurgitation by color and spectral flow Doppler. Normal pericardium. No effusion.
== END 2025-08-25 17:49 | disposition home or self-care (01) | DRG 311 ==
LOC: ER 17:03 → ED HOLD 22:14 → PCU 3S 08-25 12:59
PROVIDERS: ADMIT Internal Medicine; ATTEND Family Medicine
PROC: 4A02XM4 Measurement of Cardiac Total Activity, External Approach (ICD-10-PCS; principal; 2025-08-24)
PROC: 3E033HZ Introduction of Radioactive Substance into Peripheral Vein, Percutaneous Approach (ICD-10-PCS; 2025-08-24)
DX: I20.89 Other forms of angina pectoris (principal); E87.6 Hypokalemia; J44.89 Other specified chronic obstructive pulmonary disease; J20.8 Acute bronchitis due to other specified organisms; Z20.822 Contact with and (suspected) exposure to COVID-19; R19.7 Diarrhea, unspecified; Z88.2 Allergy status to sulfonamides; Z98.891 History of uterine scar from previous surgery; Z91.013 Allergy to seafood; Z88.1 Allergy status to other antibiotic agents
CPT/HCPCS: 36415; 71045; 78452; 80048; 80053; 80061; 81001; 83735; 84145; 84443; 84484; 85025; 85610; 85651; 86140; 87081; 87804; 87811; 93005; 93017; 93306; 94640; 94760; 99285; A9500; G0378; J1650; J2270; J2785